=== PATIENT | female | born 1975 | race African-American/Black ===

== ENCOUNTER → 2016-05-05 | Outpatient (CLI) | payer BC ==
[2016-05-05 15:27] VITALS: BP 136/85
== END ==
LOC: MHUC 14:13
PROVIDERS: ATTEND Physician Assistant
DX: J01.00 Acute maxillary sinusitis, unspecified (principal); K52.9 Noninfective gastroenteritis and colitis, unspecified; M25.561 Pain in right knee
CPT/HCPCS: 99214